=== PATIENT | female | born 1945 | race Caucasian/White ===

== ENCOUNTER → 2017-01-26 | Outpatient (CLI) | payer MEDICARE, OTHER ==
--- NOTE | 2017-01-27 19:42 | HKNOTE ---
DATE OF SERVICE: 01/26/2017 SUBJECTIVE: The patient continues to have severe pain in her left knee. She states that she is now ready to consider proceeding with knee replacement surgery. PHYSICAL EXAMINATION: LEFT KNEE: The left knee shows normal alignment. Active and passive extension is 0 degrees. Activ e and passive flexion is 120 degrees. Pain on putting the knee through forced flexion. The medial and lateral collateral ligaments and cruciate ligaments are intact. Sixto test is negative. Ther e is no effusion, scarring, or cysts. A 6+ crepitus in the knee, none in the patella. Tender over the medial joint line. The patella tracks normally. There is no tenderness on the articular surfac e of the patella or in the patellar groove. The Q angle is normal. IMAGING: Her most recent left knee x-rays were reviewed. These show [id number] changes in the pa tellofemoral compartment and the medial joint. PAST MEDICAL HISTORY: Hypertension. PAST SURGICAL HISTORY: 1. Hysterectomy. 2. Lap band placement. 3. [facility] 4. Right big toe implant. 5. Right wrist surgery by Dr. Davidson. 6. Carpal tunnel surgery by Dr. Davidson. 7. Carpal tunnel surgery left hand, Dr. Davidson. MEDICATIONS: 1. Crestor 20 mg daily. 2. Losartan 50/12.5 mg every other day. 3. Levoxyl 50 mg every other day. 4. Omeprazole 40 mg b.i.d. DIAGNOSES: 1. Severe degenerative osteoarthritis of the left knee. 2. Hypercholesterolemia. 3. Hypertension. MANAGEMENT: The patient's surgery will be scheduled to be performed in the near future. Dictated By: CAROLINA MCFARLAND/FELICIA Conf#: [id number] DID#: [id number]
== END | disposition home or self-care (01) ==
LOC: HKI 13:23
DX: M17.12 Unilateral primary osteoarthritis, left knee (principal); E78.00 Pure hypercholesterolemia, unspecified; I10 Essential (primary) hypertension
CPT/HCPCS: G0463

== ENCOUNTER → 2017-02-10 | Outpatient (CLI) | payer MEDICARE, OTHER ==
[~2017-02-10] MED LIST: LEVO50TA74 PO; LEVO75TA5 PO; LOSA1TAB19 PO; LOSA50TA6 PO; OMEP40CA6 PO; ROSU20TA PO
--- NOTE | 2017-02-11 03:53 | HKNOTE ---
DATE OF SERVICE: 02/10/2017 The patient comes in for preoperative evaluation. She is scheduled to have a left total hip replace ment on 02/11/2017. She has been cleared for surgery by Dr. Christian Reyes. Numerous questions were asked and answered. She read my booklet on knee replacement surgery. The patient is in good h ealth at this time. She continues to have significant symptoms in her knee. She is anxious to proc eed with the surgery. She was given prescriptions for postoperative pain management. Dictated By: CAROLINA MCFARLAND/FELICIA Conf#: [id number] DID#: [id number]
== END | disposition home or self-care (01) ==
LOC: HKI 13:30
DX: M25.552 Pain in left hip (principal); M16.12 Unilateral primary osteoarthritis, left hip
CPT/HCPCS: G0463

== ENCOUNTER 2017-02-11 06:08 | Inpatient (IN) | payer MEDICARE, OTHER ==
[2017-02-10 10:13] VITALS: BMI 27.6
[2017-02-11] VITALS (30 sets, daily range): BP systolic 113–148; BP diastolic 64–78; PULSE 69–90; RESP 9–20; Ht 149.9 cm; Wt 63.4 kg
[~2017-02-11] VITALS: Ht 149.9 cm; Wt 63.4 kg
[~2017-02-11 06:08] MED LIST changes: +KNEE PAIN COCKTAIL VANCO INJ SCH; -LEVO50TA74 PO; -LEVO75TA5 PO; -LOSA1TAB19 PO; -LOSA50TA6 PO; -OMEP40CA6 PO; -ROSU20TA PO; +SOD CHLORIDE 0.9% IVPB ONE; +TRANEXAMIC ACID IVPB ONE
[2017-02-11] MEDS ORDERED: ONDANSETRON 4 MG INJ IV ONE (06:12)
[2017-02-11] MEDS ORDERED: DEXAMETHASONE 4 MG/ML 1 ML INJ IV ONE (06:12)
[2017-02-11] MEDS ORDERED: CELECOXIB 200 MG CAP PO ONE (06:12)
[2017-02-11] MEDS ORDERED: VANCOMYCIN 1 GM (PMX) 250 ML IVPB ONE (06:12)
[2017-02-11] MEDS ORDERED: ACETAMINOPHEN 1000MG/100ML IV 100 ML IVPB ONE (06:12)
[2017-02-11] MEDS ORDERED: LACTATED RINGER'S 1,000 ML IV* SCH (06:12)
[2017-02-11] MEDS ORDERED: oxyCODONE (CR) 10 MG TAB [oxyCONTIN] PO ONE (06:12)
[2017-02-11] MEDS ORDERED: LANSOPRAZOLE 30 MG CAP PO ONE (06:12)
[2017-02-11] MEDS ORDERED: LEVO75TA5 PO (06:25)
[2017-02-11] MEDS ORDERED: LOSA50TA6 PO (06:25)
[2017-02-11] MEDS ORDERED: LEVO50TA74 PO (06:25)
[2017-02-11] MEDS ORDERED: LOSA1TAB19 PO (06:25)
[2017-02-11] MEDS ORDERED: OMEP40CA6 PO (06:25)
[2017-02-11] MEDS ORDERED: ROSU20TA PO (06:25)
--- NOTE | 2017-02-11 06:50 | HPN ---
Date/Time of Note Date/Time of Note DATE: 02/11/17 TIME: 06:50 Interval H&P Admission Note Pt. seen H&P reviewed: No system changes LE ALONSO PA-C Feb 11, 2017 06:50
[2017-02-11] MEDS ORDERED: MIDAZOLAM 1 MG/ML 2 ML INJ ONE (07:35)
[2017-02-11] MEDS ORDERED: METHYLENE BLUE 1% 10 ML INJ ONE (07:53)
[2017-02-11] MEDS ORDERED: BUPIVACAINE 0.25%/EPI (SDV) 30 ML INJ ONE (07:53)
[2017-02-11] MEDS ORDERED: POLYMYXIN B 500000 UNIT INJ ONE (07:54)
[2017-02-11] MEDS ORDERED: TOBRAMYCIN 1.2 GM POWDER ONE (07:54)
[2017-02-11] MEDS ORDERED: VANCOMYCIN 1 GM INJ ONE (07:54)
[2017-02-11] MEDS ORDERED: SOD CHLORIDE 0.9% IRR SCH ×2 (08:00)
[2017-02-11] MEDS ORDERED: TRANEXAMIC ACID IRR SCH ×2 (08:00)
[2017-02-11] MEDS ORDERED: FENTAnyl 50 MCG/ML VIAL ONE (08:05)
[2017-02-11] MEDS ORDERED: ROPIVACAINE 0.2% 100 ML ONE (08:06)
[2017-02-11] MEDS ORDERED: BUPIVACAINE 0.25% (MPF) 30 ML INJ ONE (08:52)
[2017-02-11] MEDS ORDERED: BACITRACIN 50000 UNITS INJ IRR ONE (09:11)
[2017-02-11] MEDS ORDERED: ROPIVACAINE 0.2% 100ML BAG INJ ONE (09:13)
[2017-02-11] MEDS ORDERED: LABETALOL HCL 20MG INJ IV PRN (10:00)
[2017-02-11] MEDS ORDERED: DIPHENHYDRAMINE 50 MG INJ IV PRN (10:00)
[2017-02-11] MEDS ORDERED: MEPERIDINE 25 MG INJ IV PRN (10:00)
[2017-02-11] MEDS ORDERED: hydrALAzine 20 MG INJ IV PRN (10:00)
[2017-02-11] MEDS ORDERED: HYDROmorphONE (0.2 MG/ML) 10ML SYG IV PRN ×2 (10:00)
[2017-02-11] MEDS ORDERED: ONDANSETRON 4 MG INJ IV PRN (10:00)
[2017-02-11] MEDS ORDERED: FENTAnyl 50 MCG/ML VIAL IV PRN (10:00)
[2017-02-11] MEDS ORDERED: METOCLOPRAMIDE 10 MG INJ IV PRN (10:00)
--- NOTE | 2017-02-11 10:12 | RADRPT ---
PROCEDURE: Intraoperative imaging of the left knee with fluoroscopy. CLINICAL INDICATION: Left knee pain. Intraoperative. TECHNIQUE: 2 images of the left knee were obtained in the operating room with an image intensifier . No radiologist was in attendance. 2.1 seconds of fluoroscopy time was used. COMPARISON: Left knee radiographs dated 10/05/2016. FINDINGS: Images demonstrate components of a total left knee arthroplasty. IMPRESSION: 1. Intraoperative imaging of the left knee. RPTAT: QQ .Jam Bee MD, Date Time Electronically viewed and signed by .Jam Bee MD, on 02/11/2017 10:12 .R/
[2017-02-11] MEDS ORDERED: ONDANSETRON 4 MG INJ ONE (11:17)
[2017-02-11] MEDS ORDERED: ETOMIDATE 20 MG INJ ONE (11:17)
[2017-02-11] MEDS ORDERED: ROCURONIUM 50 MG INJ ONE (11:17)
[2017-02-11] MEDS ORDERED: METOCLOPRAMIDE 10 MG INJ ONE (11:17)
[2017-02-11] MEDS ORDERED: DEXAMETHASONE 4 MG/ML 1 ML INJ ONE (11:17)
[2017-02-11] MEDS ORDERED: LIDOCAINE 2% (SDV) 5 ML INJ ONE (11:17)
[2017-02-11] MEDS ORDERED: NALOXONE (0.4 MG/ML) INJ IV PRN (12:00)
[2017-02-11] MEDS ORDERED: MAGNESIUM HYDROXIDE 30ML CUP PO PRN (12:00)
[2017-02-11] MEDS ORDERED: MEPERIDINE 10 MG/ML 30 ML PCA IV PRN (12:00)
[2017-02-11] MEDS ORDERED: NA PHOSPHATE/BIPHOS 133 ML ENEMA PR PRN (12:00)
[2017-02-11] MEDS: ONDANSETRON 4 MG INJ IV SCH ×3 (12:00→23:47)
[2017-02-11] MEDS ORDERED: DOCUSATE SODIUM 100 MG CAP PO ONE (12:00)
[2017-02-11] MEDS ORDERED: DIPHENHYDRAMINE 50 MG INJ IM PRN (12:00)
[2017-02-11] MEDS ORDERED: ASPIRIN (EC) 325 MG TAB PO ONE (12:00)
[2017-02-11] MEDS ORDERED: BISACODYL 10 MG SUPP PR PRN (12:00)
[2017-02-11] MEDS ORDERED: SENNA/DOCUSATE NA (8.6MG/50MG) TAB PO PRN (12:00)
[2017-02-11] MEDS ORDERED: COUMADIN NOTE XX SCH (12:00)
[2017-02-11] MEDS: ACETAMINOPHEN 1000MG/100ML IV 100 ML IVPB SCH ×2 (12:00→20:34)
[2017-02-11] MEDS ORDERED: ZOLPIDEM 5 MG TAB PO PRN (12:00)
[2017-02-11] MEDS ORDERED: HYDROmorphONE 0.2 MG/ML PCA IV PRN (12:00)
[2017-02-11] MEDS ORDERED: BETHANECHOL 25 MG TAB PO PRN (12:00)
[2017-02-11] MEDS: CEFAZOLIN 1 GM/50 ML (PMX) 50 ML IVPB SCH ×2 (12:25→20:56)
--- NOTE | 2017-02-11 13:15 | CONS ---
Date/Time of Note Date/Time of Note DATE: 02/11/17 TIME: 13:12 Assessment/Plan Assessment/Plan Additional Assessment/Plan Osteoarthritis status post left knee surgery Hypertension Dyslipidemia -Patient status post surgery this morning. Blood pressure slowly increasing. Patient was on losartan and hydrochlorothiazide at home. Would restart losartan with holding parameters. Restart statin therapy. Consultation Date/Type/Reason Admit Date/Time Feb 11, 2017 at 06:08 Type of Consultation: cv Reason for Consultation Postop cardiology management Hx of Present Illness This is a 71-year-old female with past medical history of osteoarthritis, hypertension, dyslipidemia who was seen in our office preoperatively for elective knee surgery. Patient underwent knee surgery this morning. She is being evaluated postoperatively in recovery. She denies any chest pain, shortness of breath, dizziness or lightheadedness. Denies any pain. She does feel tired. Otherwise, she has no complaints. 12 point review of systems was performed with all pertinent positives and negatives mentioned above and all else is negative Past Medical History Osteoarthritis Medical History: high cholesterol, hypertension Family History Significant Family History: no pertinent family hx Social History Smoking Status: Former smoker Other Social History Lives at home Exam/Review of Systems Vital Signs Vitals Vital Signs Date Time Temp Pulse Resp B/P Pulse Ox O2 Delivery O2 Flow Rate FiO2 02/11/17 12:37 80 18 143/78 99 Nasal Cannula 2.0 02/11/17 12:01 98.0 Exam No apparent distress, following commands, being seen in recovery Constitutional: alert, oriented Head: normocephalic Respiratory: other (Coarse breath sounds bilaterally, no wheezing) Cardiovascular: other (S1-S2 heard), regular rate and rhythm Gastrointestinal: bowel sounds, non-tender, other (No guarding), soft Extremities: other (Trace edema, left knee wrapped) Medications Medications Current Medications Lactated Ringer's 1,000 ml @ 125 mls/hr Q8H IV* Last administered on 02/11/17t 06:48; Admin Dose 125 MLS/HR; Start 02/11/17 at 06:12; Stop 02/11/17 at 14:11 Dextrose/Lactated Ringer's (D5-Lr) 1,000 ml @ 80 mls/hr [id number] IV ; Start 02/11 at 12:00; Stop 02/12/17 at 09:00 Hydromorphone HCl (Dilaudid CEMENTER OIL WELL) Q4PCA PRN IV SEVERE PAIN 8-10; Start 02/11/17 at 12:00; Stop 02/12/17 at 09:00 Meperidine HCl (Demerol CEMENTER OIL WELL) Q4PCA PRN IV SEVERE PAIN 8-10; Start 02/11/17 at 12:00; Stop 02/12/17 at 09:00 Oxycodone HCl (Roxicodone) 20 mg Q3H PRN PO PAIN LEVEL 8-10; Start 02/12/17 at 09:00 Oxycodone HCl (Roxicodone) 10 mg Q3H PRN PO PAIN LEVEL 4-7; Start 02/12/17 at 09 :00 Oxycodone HCl 5 mg 5 mg Q3H PRN PO PAIN LEVEL 1-3; Start 02/12/17 at 09:00 Acetaminophen (Ofirmev 1000mg/ 100ml Iv) 100 ml @ 400 mls/hr Q8H IVPB ; Start 02/11/17 at 12:00; Stop 02/13/17 at 04:14 Zolpidem Tartrate (Ambien) 5 mg HS PRN PO INSOMNIA; Start 02/11/17 at 12:00 Ondansetron HCl 4 mg 4 mg Q6H IV ; Start 02/11/17 at 12:00; Stop 02/12/17 at 06:01 Cefazolin Sodium (Ancef 1 Gm/50 ml (Pmx)) 50 ml @ 100 mls/hr Q8H IVPB Last administered on 02/11/17t 12:25; Admin Dose 100 MLS/HR; Start 02/11/17 at 12:00; Stop 02/12/17 at 04:29 Miscellaneous Information (Note) NOTE XX ; Start 02/11/17 at 12:00 Aspirin (Ecotrin) 325 mg BID PO ; Start 02/12/17 at 09:00 Celecoxib (Celebrex) 200 mg BID PO ; Start 02/12/17 at 09:00 Dexamethasone (Decadron) 4 mg DAILY@07 IV ; Start 02/12/17 at 07:00; Stop at 06:59 Pantoprazole (Protonix Tab) 40 mg DAILY@06 PO ; Start 02/12/17 at 06:00 Docusate Sodium/ Ferrous Fumarate (Marleni-Sequels) 1 tab BID PO ; Start 02/12/17 at 09:00 Docusate Sodium (Colace) 200 mg BID PO ; Start 02/12/17 at 09:00; Stop 02/15/17 at 08:59 Simethicone (Mylicon) 80 mg TID PRN PO DISTENSION/GAS/BLOATING; Start 02/11/17 at 12:00 Senna/Docusate Sodium (Senokot-S) 2 tab BID PRN PO CONSTIPATION; Start 02/11/17 at 12:00 Magnesium Hydroxide (Milk Of Mag) 30 ml HS PRN PO CONSTIPATION; Start 02/11/17 at 12:00 Bisacodyl (Dulcolax Supp) 10 mg DAILY PRN FL CONSTIPATION; Start 02/11/17 at 12: 00 Sodium Biphosphate/ Sodium Phosphate (Fleet Enema) 133 ml DAILY PRN FL CONSTIPATION; Start 02/11/17 at 12:00 Diphenhydramine HCl (Benadryl) 25 mg Q4H PRN IM ITCHING OR RASH; Start 02/11/17 at 12:00 Ketorolac Tromethamine (Toradol) 15 mg DAILY@06 PRN INJ ADMINSTER BY SURGEON ONLY; Start 02/12/17 at 06:00; Stop 02/14/17 at 23:59 Bupivacaine HCl/ Epinephrine Bitart (Marcaine 0.25%/ Epi (Sdv) 30 ml) 20 ml DAILY@06 PRN INJ ADMINSTER BY SURGEON ONLY; Start 02/12/17 at 06:00; Stop at 23:59 Naloxone HCl (Narcan) 0.2 mg Q2M PRN IV DECREASED REPIRATORY RATE; Start at 12:00 Severino Maher DO Feb 11, 2017 13:15
--- NOTE | 2017-02-11 13:22 | OPR ---
DATE OF OPERATION: 02/11/2017 SURGEON: Herbert. Adam MD CANAL STRUCTURE OPERATOR: FRANCISCO JAVIER Wade ANESTHESIOLOGIST: ___ PREOPERATIVE DIAGNOSIS: Exceedingly severe degenerative osteoarthritis of the left knee. POSTOPERATIVE DIAGNOSIS: Exceedingly severe degenerative osteoarthritis of the left knee. OPERATION PERFORMED: Total knee replacement (arthroplasty of the knee, condylar plateau medial and lateral compartments with patella resurfacing, CPT 96441). FINDINGS AT SURGERY: The patient was found to have exceedingly severe degenerative osteoarthritis o f the patellofemoral joint. The medial tibial plateau showed severe degenerative changes. The med ial femoral condyle showed erosion of about 50% of the articular cartilage over the weightbearing villareal rface. The remaining cartilage is of very poor quality. There are very large osteophytes around th e entire periphery of the distal femur, and the intercondylar notch is almost overgrown with osteoph ytes. The patient's bone quality was excellent for a person of her age. JUSTIFICATION FOR SURGERY: The knee was found to have end-stage osteoarthritis. The patient is a v karina active 71-year-old whose lifestyle is markedly affected by the arthritic knee. An extensive cou rse of conservative care has been tried prior to embarking on the knee replacement operation. There can be no reasonable expectation that any further conservative treatment will make any improvement to this patient's pain level and lifestyle. The risks and complications of the surgery were discuss ed with the patient at the preoperative visit as well as the risks and possible complications of blo od transfusion using hospital blood. The patient is agreeable to using hospital blood if needed. DESCRIPTION OF PROCEDURE: The patient was given intravenous antibiotics 1 hour prior to surgery. A n epidural anesthetic was initiated in the ICU holding area. The patient was taken to the operating room and given a light general anesthetic. The leg, foot, and ankle were prepared and draped in th e usual sterile fashion. The center of the ankle was marked at the midpoint between the 2 malleoli with a sterile marking pen. A tourniquet around the thigh was inflated to 225 mmHg after the leg leung d been exsanguinated using an Esmarch bandage. The tourniquet was inflated at the initiation of pro cedure for a short period and was then again reinflated at the time of cementing the components part s. The total tourniquet time was 56 minutes. A longitudinal incision was made over the anterior aspect of the knee. The incision extended from t he tibial tubercle to a point just above the patella. The medial capsule was exposed by sharp and b meenakshi dissection, and was incised 1/4 inch medial to the patella. A marking stitch was set on each s princess of the incision at the midpoint of the capsule so as to enable accurate reapproximation at the e nd of the operation. A vastus split was made in the vastus medialis extending from the superior karina e of the patella for approximately 5 cm between the line with the muscle fibers. The ends of the mu scle split at the patella were marked with a marking stitch on each side for later accurate reapprox imation. The patella was reflected laterally and osteophytes around the rim of the patella were rem eyad. Osteophytes along the lateral femoral condyle were removed so as to facilitate lateral reflec tion of the patella. Posteromedial osteophytes were removed on the lateral side as well, so as to f ree up the lateral collateral ligament. Medial femoral osteophytes and posteromedial femoral osteop hytes were also removed at this time. This allowed for the knee to be brought into a more normal al ignment. A segment of bone was cut from the articular surface of the patella using a caliper to det ermine the exact thickness to be removed. Note that the patella was extremely small and thin. Prior to making the patellar cut, the thickness of the patella was 17 mm. A standard jig for making the p atellar cut was not used for fear of cutting too much off the patella, especially since the medial a nd lateral femoral condyles were hypoplastic at surgery. The knee was flexed, and the patella was di splaced laterally without eversion. Osteophytes in the femoral notch were removed. The remnants of the medial and lateral menisci were excised and the cruciate ligaments were excised. The medial co llateral ligament was elevated as an osteo-periosteal flap from the proximal tibia. The distal end of the medial collateral ligament remained attached to the tibia throughout the operation. The tibi a was retracted forward with Hohmann retractor, inserted posterior to the midpoint of the proximal t ibia. The tibial jig was set in place in such a way as to align longitudinally with the anterior ti bial spine, with the junction of the middle and medial 2/3 of the patella tendon, and with the poste rior intercondylar eminence of the tibia. An AP and lateral x-ray was obtained with the alignment j ig in place. This showed that the alignment was satisfactory after some slight adjustments were mad e. The posterior slope of the tibia was set at 6 degrees. The tibial cutting block was attached to the proximal tibia with 2 Steinmann pins. An external alignment nate was placed on the cutting bloc k to confirm the alignment of the cutting block. An Karel Wing feeler gauge was now placed on the s uperior aspect of the cutting block to further confirm the posterior slope of the tibia and the dept h of the cut to be made. An oscillating saw was used to remove an appropriate amount of bone from t he proximal tibia with the healthy side being used to measure the cutting depth. The lateral femora l condyle of the distal femur was measured to determine the appropriate size for the femoral compone nt. The anterior condyle of the femur was partially removed with a rongeur. A medium-sized cutting block was attached to the distal femur with 2 Steinmann pins through the pin holes in the block. T he external alignment jig of this cutting block was lined up with the anterior surface of the femur and a central intercondylar hole for the intramedullary nate was drilled through the hole in the alig nment block. The block was removed. A long Waterpik nozzle was used to flush fat from the intramed ullary canal. The appropriately sized cutting block was now attached to the femur by means of an in tramedullary nate. The linking guide was inserted into the slot in the base of the femoral cutting b lock with the knee set at 90 degrees of flexion and with the linking guide set flush with the proxim al tibial cut in order to set the appropriate rotational alignment on the femoral cutting block. Li gament balance was checked at this point and was found to be very satisfactory. Once the rotational alignment had been determined, and the ligaments found to be balanced, the femoral cutting block wa s secured to the distal femur with 2 Steinmann pins. The anterior and posterior cuts of the distal femur were made off the femoral cutting block. The cutting block was removed and a spacer block was used to measure the flexion gap which was found to be 12.5 mm. The same spacer block size without the femoral element was used with the leg in extension to determi ne the amount of distal femur to be removed in the transverse plane. A 5-degree distal cutting bloc k was now set on the femoral intramedullary nate, and the nate was inserted into the intramedullary ca nal. The appropriate amount of bone to be removed was determined. The femoral cutting block was pi nned to the anterior surface of the femur with 2 Steinmann pins. The appropriate amount of bone was resected off the distal femur to give an extension gap equal to the thickness of the flexion gap. The cut needed to be repeated after initial cut in order to produce an extension gap the same size a s the flexion gap. By using the appropriate cutting blocks, the rest of the femoral cuts were made. The femoral trial component was installed and was found to fit perfectly. The femoral trial component was removed. T he proximal tibia was sized, and the appropriate tibial tray selected. The central fixation hole in the tibia was made using the tibial tray template and the appropriate instruments. The femoral and tibial trials and the trial tibial insert were installed, and the patella was prepared to accept th e 32 mm-sized dome component. The trial components were all removed. The tourniquet was inflated. Soft tissues around the knee, especially the posterior capsule, were injected with a mixture of Jac opin, Toradol, morphine, and clonidine. The cut surfaces of the bones were cleaned with pulsatile W ater Jet lavage and thoroughly dried. Sclerotic bone surfaces were drilled with a 1/8-inch drill. The tibial trial component was installed with methyl methacrylate cement followed by the femoral com ponent and finally the patellar component. Cement was used on all 3 components. The cement was fin kinsey packed into the cut surfaces of the bone and pressurized with a rubber dam in order to get good interdigitation of the cement into the bone. A lateral x-ray of the knee was obtained while the keyshawn ent was hardening with the [address], which showed that the knee was in extension and th at a 12.5 mm tibial tray would be required. Once the cement was hard, all extraneous cement was cornell juan carlos. The cut edges of the medial capsule were held together at the midpoint with a towel clip, and the knee was put through a full range of motion. The patella was found to track satisfactorily. A lateral release was not required. At this point, the patella was found to track very well in the pa tellar groove of the femoral component. The knee was frequently irrigated with normal saline containing antibiotics with pulsatile lavage th roughout the entire operation as a prophylactic measure against infection. Once the cement was hard , the tourniquet was released. Bleeding points were cauterized. The total tourniquet time was 56 m inutes. The patient's vital signs remained stable throughout the operation. The permanent rotating bearing was installed. Superficial and deep Hemovac drains were set in place . The wound was closed using interrupted Vicryl on the capsule with FiberWire used at strategic poi nts such as the attachment of the distal ends of the vastus medialis at the split, and the tibial te ndon was also attached to the osteo-periosteal flap with FiberWire. The rest of the medial capsule was closed with interrupted Vicryl. A subcuticular stitch was inserted and aurelia were used on the skin. The usual sterile dressings were applied. A Anthony-Muniz compression dressing was applied a fter a sterile cooling pad had been set in place against the deep tissues by sterile cast padding. The patient's condition at the end of the procedure was satisfactory. Vital signs remained stable t hroughout the operation. The patient returned to the recovery room in stable condition. X-rays wer e obtained in the recovery room. Calf pumps were applied to both legs in the operating room. There were no problems or complications as far as we know. The sponge and instrument counts were correct . COMPONENT INFORMATION: KNEE IMPLANT TYPE: LCS. FEMORAL COMPONENT SIZE: 2 TIBIAL COMPONENT SIZE: 2 PATELLAR COMPONENT SIZE: 32 mm dome TIBIAL INSERT: 12.5 mm ____ IMPLANT MOTOR INSTALLER: The [employer] [place], [place]. TOTAL TOURNIQUET TIME: 54 minutes TOTAL BLOOD LOSS: Less than 150 mL Dictated By: CAROLINA MCFARLAND/FELICIA Conf#: [id number] DID#: [id number]
[2017-02-11] MEDS ORDERED: TRANEXAMIC ACID 630 MG in SOD CHLORIDE 0.9% 100 ML IVPB ONE ×2 (15:00→18:00)
[2017-02-11] MEDS ORDERED: BACITRACIN 50000 UNITS INJ ONE (15:10)
--- NOTE | 2017-02-11 15:27 | RADRPT ---
PROCEDURE: Left knee radiograph. CLINICAL INDICATION: Left knee pain. Intraoperative. TECHNIQUE: Single lateral intraoperative image. COMPARISON: Prior study done earlier the same day. FINDINGS: There are components of a total left knee arthroplasty. Alignment was determined in the operating r oom by the surgeon. IMPRESSION: 1. Satisfactory intraoperative imaging of the left knee. RPTAT: QQ .Jam Bee MD, MD Date Time Electronically viewed and signed by .Jam Bee MD, on 02/11/2017 15:26 .R/
[2017-02-11] MEDS ORDERED: oxyCODONE 5 MG TAB PO PRN ×2 (15:30)
[2017-02-11] MEDS: oxyCODONE 5 MG TAB PO PRN (15:40)
[2017-02-11] MEDS: DEXTROSE 5%-LR 1,000 ML IV SCH (15:45)
--- NOTE | 2017-02-11 16:13 | RADRPT ---
PROCEDURE: XR Left Knee. CLINICAL INDICATION: Left knee pain. Postop. TECHNIQUE: Two views. Frontal and lateral. COMPARISON: Prior study done earlier the same day. FINDINGS: Anterior skin aurelia and surgical drains are noted. There is gas in the soft tissues from the recent surgery. There is a total left knee arthroplasty which appears satisfactory. There is no lytic or blastic lesion. There is no joint effusion. IMPRESSION: 1. Satisfactory postoperative appearance of the left knee. RPTAT: QQ .Jam Bee MD, MD Date Time Electronically viewed and signed by .Jam Bee MD, MD on 02/11/2017 16:13 .R/
--- NOTE | 2017-02-11 17:48 | HP ---
DATE OF ADMISSION: 02/11/2017 CHIEF COMPLAINT: Left knee pain. HISTORY OF PRESENT ILLNESS: The patient is a 71-year-old female with history of severe left knee os teoarthritis, status post failed conservative treatment including local steroid injection. The dax ent continues to have severe pain in the left knee and was scheduled for left total knee replacement . Patient postoperatively denies any chest pain or shortness of breath. The patient is breathing c omfortably and remains awake and alert. The patient does not have any sensory, motor deficit. The p atient did not have any abdominal pain. No recent fever or chills. No recent fall. The patient de nied any cough, sore throat, headache, dizziness, syncope. No history of dysuria or hematuria prior to admission. REVIEW OF SYSTEMS: The rest of review of systems were unremarkable. The patient's postoperative pa in is controlled. PAST MEDICAL HISTORY: The patient's medical history is significant for hypertension and dyslipidemia and hypothyroidism. PAST SURGICAL HISTORY: Status post and subsequently underwent hysterectomy, history of la p band placement, history of bilateral carpal tunnel surgery, history of neuroma removed from hammer toe and right big toe implant. Details not available. SOCIAL HISTORY: No smoking, no alcohol. ALLERGIES: None to medications. FAMILY HISTORY: Noncontributory for patient's medical condition. PHYSICAL EXAMINATION: GENERAL: The patient is conscious, awake, alert. VITAL SIGNS: Blood pressure 148/78, pulse 79, respirations 18, temperature 97.6, O2 saturation 97% on 2 liters. HEENT: Atraumatic, normocephalic. Conjunctivae and lids normal. Oropharynx clear. NECK: Supple. No mass, no thyromegaly, no carotid bruit. CHEST: Fairly clear. No use of accessory muscles. CARDIOVASCULAR: Regular rate and rhythm. S1, S2 normal. No murmur. ABDOMEN: Soft, nondistended, nontender. No palpable mass. No pulsatile mass. EXTREMITIES: No ankle edema. Pedal pulses palpable. SKIN: Without rash or ulcer warm to touch. NEUROLOGIC: The patient is awake, alert with no gross focal deficit. MEDICATIONS PRIOR TO ADMISSION: 1. Losartan. 2. HCTZ. 3. Levothyroxine. 4. Crestor. 5. Omeprazole. 6. Tylenol. LABORATORY DATA: Sodium 139, potassium 4.3, BUN 14, creatinine 0.8, glucose 90. Liver enzymes norm al. LDL 46. TSH 1.3. T4 1. Coagulation profile normal. WBC 6.3, hemoglobin 12.2, platelets 246. EKG revealed normal sinus rhythm with no gross ST changes. Chest x-ray revealed no active disease . IMPRESSION: 1. Severe left knee osteoarthritis, failed conservative treatment, status post left total knee repl acement. 2. Hypertension. 3. Hyperlipidemia. 4. Hypothyroidism. PLAN: Patient admitted on medical floor. Patient will be started on clear liquid diet, which will be advanced as tolerated. The patient will be continued on IV fluid and will be given IV Tylenol, I V Toradol, Roxicodone and IV Dilaudid depending upon the severity of the pain. The patient will be started on aspirin 325 b.i.d. for DVT prophylaxis and will be continued on Lipitor, losartan, hydroc hlorothiazide, omeprazole and Levoxyl. The patient will be seen by Dr. Maher from [facility]. I spoke with the patient's PMD, Dr. Mccoy. Further recommendation depends on hospital course and postoperative recommendation from Dr. Medina. Dictated By: SEB PEHLAN/FELICIA Conf#: [id number] DID#: [id number]
[2017-02-11] MEDS: ATORVASTATIN 20 MG TAB PO SCH (20:34)
[2017-02-11] MEDS: LOSARTAN 25 MG TAB PO SCH (20:36)
[2017-02-12] MEDS: DEXTROSE 5%-LR 1,000 ML IV SCH (00:30)
[2017-02-12] MEDS: oxyCODONE 5 MG TAB PO PRN (02:56)
[2017-02-12 05:29] LABS: ADD SCAN DIFF NO; BASOPHILS % 0.1 % (0.0-2.0); HEMATOCRIT 28.4 % (37.0-47.0); HEMOGLOBIN 9.3 g/dl (12.0-16.0); LYMPHOCYTES % 7.4 % (15.0-51.0); MEAN CORPUSCULAR HEMOGLOBIN 29.5 pg (29.0-33.0); MEAN CORPUSCULAR HGB CONC 32.7 g/dl (32.0-37.0); MEAN CORPUSCULAR VOLUME 90.2 fl (82.0-101.0); MEAN PLATELET VOLUME 11.9 fl (7.4-10.4); MONOCYTE # 1.1 10^3/ul (0.3-0.9); MONOCYTES % 7.6 % (0.0-11.0); NEUTROPHIL # 11.8 10^3/ul (1.6-7.5); NEUTROPHILS % 84.4 % (39.0-77.0); PLATELET COUNT 194 10^3/UL (140-415); RED BLOOD COUNT 3.15 10^6/ul (4.20-5.40); RED CELL DISTRIBUTION WIDTH 13.4 % (11.5-14.5)
[2017-02-12] MEDS: ONDANSETRON 4 MG INJ IV SCH (05:33)
[2017-02-12] MEDS: ACETAMINOPHEN 1000MG/100ML IV 100 ML IVPB SCH ×3 (05:33→20:21)
[2017-02-12] MEDS: CEFAZOLIN 1 GM/50 ML (PMX) 50 ML IVPB SCH (05:33)
[2017-02-12] MEDS: LEVOTHYROXINE 50 MCG TAB PO SCH (05:33)
[2017-02-12] MEDS: PANTOPRAZOLE (EC) 40 MG TAB PO SCH (05:33)
[2017-02-12] MEDS ORDERED: KETOROLAC 15 MG INJ INJ PRN (06:00)
[2017-02-12] MEDS ORDERED: BUPIVACAINE 0.25%/EPI (SDV) 30 ML INJ INJ PRN (06:00)
[2017-02-12] MEDS: DEXAMETHASONE 4 MG/ML 1 ML INJ IV SCH (06:18)
[2017-02-12 07:00] VITALS: BP 110/61; RESP 20
--- NOTE | 2017-02-12 07:32 | PN ---
Date/Time of Note Date/Time of Note DATE: 02/12/17 TIME: 07:25 Assessment/Plan VTE Prophylaxis VTE Prophylaxis Intervention: ambulation, anti-embolic stocking, SCD's, other ( Aspirin 325 mg twice daily) Lines/Catheters IV Catheter Type (from Nrsg): Peripheral IV Garcia in Place (from Nrs): Yes Assessment/Plan Assessment/Plan -Hemovac Removed Today. 200 cc output. -Pain Cocktail Given -Pain Meds as needed -Dress change performed today -OOB with PT -ASA/SCDs for DVT Prophylaxis -Continue monitoring with Internal Medicine -Discussed with patient the increased risk of prolonged insertion of Garcia catheter in regards to urinary tract infection. Patient has agreed to remove Garcia catheter. Order was communicated to the nurse (Cynthia). -White blood cell count at 14 with mild erythema at wound site. Vancomycin will be ordered for infection prophylaxis. -Patient Stable. Plan is to DC home likely on postop day 2 or 3 depending on continued progress. Subjective 24 Hr Interval Summary 71-year-old female postop day 1 status post left total knee arthroplasty. Patient denies any complications overnight. No pain complaints of the knee. Patient refused to remove Garcia catheter yesterday as she would like to avoid using bedpan. Denies any chest pain/tightness, shortness of breath or calf pain. Doing well. Has yet to initiate physical therapy. Constitutional: improved, no complaints Exam/Review of Systems Vital Signs Vitals Vital Signs Date Time Temp Pulse Resp B/P Pulse Ox O2 Delivery O2 Flow Rate FiO2 02/11/17 23:45 97.4 80 18 117/68 98 02/11/17 20:00 Nasal Cannula 2.0 Intake and Output 02/11/17 02/11/17 02/12/17 15:00 23:00 07:00 Intake Total 1712.4 ml 1156.3 ml 1030 ml Output Total 450 ml 650 ml 700 ml Balance 1262.4 ml 506.3 ml 330 ml Exam Free Text/Dictation -Hemovac: Intact with 200 cc output. -Pain Cocktail Drains: Intact -Incision: Clean, Dry and Intact with mild erythema at wound site. No drainage. -5/5 Tibialis Anterior, EHL Gastrocnemius/Soleus and Peroneals -Normal Sensation -Palpable DP/PT, Capillary Refill <2 secs -No Distal Edema -Negative Gio Sign/No calf pain -Toes Freely Movable Constitutional: alert, oriented, well developed Results Result Diagram: 02/12/17 0434 LE ALONSO PA-C Feb 12, 2017 07:32
[2017-02-12] MEDS ORDERED: VANCOMYCIN IV PER PHARMACY XX SCH (08:00)
[2017-02-12] MEDS ORDERED: LOSARTAN 50 MG TAB PO SCH (09:00)
[2017-02-12] MEDS: VANCOMYCIN 1 GM in NS 250 ML IVPB SCH (09:03)
[2017-02-12] MEDS: ASPIRIN (EC) 325 MG TAB PO SCH ×2 (09:04→20:21)
[2017-02-12] MEDS: FERROUS FUMARATE (SR) TAB PO SCH ×2 (09:04→20:21)
[2017-02-12] MEDS: CELECOXIB 200 MG CAP PO SCH ×2 (09:04→20:21)
[2017-02-12] MEDS: LOSARTAN 25 MG TAB PO SCH ×2 (09:04→20:22)
[2017-02-12] MEDS: HYDROCHLOROTHIAZIDE 12.5 MG CAP PO SCH (09:05)
[2017-02-12] MEDS: DOCUSATE SODIUM 100 MG CAP PO SCH ×2 (09:05→20:21)
[2017-02-12 11:25] VITALS: BP 129/67; PULSE 84; RESP 16
[2017-02-12] MEDS ORDERED: ONDANSETRON 4 MG INJ IV PRN (11:30)
--- NOTE | 2017-02-12 13:22 | PN ---
Date/Time of Note Date/Time of Note DATE: 02/12/17 TIME: 13:15 Assessment/Plan VTE Prophylaxis VTE Prophylaxis Intervention: other Lines/Catheters IV Catheter Type (from Nrs): Peripheral IV Urinary Cath still in place: Yes Assessment/Plan Assessment/Plan 1. Severe left knee osteoarthritis, failed conservative treatment, status post left total knee replacement. -per surgery - clear liquid diet, which will be advanced as tolerated. - IV fluid and will be given IV Tylenol, IV Toradol, Roxicodone and IV Dilaudid depending upon the severity of the pain. 2. Hypertension. - losartan, hydrochlorothiazide -per Dr. Maher from cardiac standpoint. 3. Hyperlipidemia. - continued on Lipitor 4. Hypothyroidism. - Levoxyl 5. omeprazole for GI prophylaxis 6. ASA 325 PO BID for DVT prophylaxis Further recommendation depends on hospital course and postoperative recommendation from Dr. Medina. Subjective 24 Hr Interval Summary Eyes: no complaints ENT: no complaints Respiratory: no complaints Cardiovascular: no complaints Gastrointestinal: nausea (getting better after meds) Genitourinary: no complaints Musculoskeletal: bone/joint pain Skin: no complaints Neurologic: no complaints Endocrine: no complaints Lymphatic: no complaints Psychological: no complaints Exam/Review of Systems Vital Signs Vitals Vital Signs Date Time Temp Pulse Resp B/P Pulse Ox O2 Delivery O2 Flow Rate FiO2 02/12/17 11:25 97.2 84 16 129/67 98 Room Air 02/11/17 20:00 2.0 Intake and Output 02/11/17 02/11/17 02/12/17 15:00 23:00 07:00 Intake Total 1712.4 ml 1156.3 ml 1030 ml Output Total 450 ml 650 ml 700 ml Balance 1262.4 ml 506.3 ml 330 ml Exam Constitutional: alert, oriented Psych: nl mood/affect Eyes: EOMI ENMT: nl external ears & nose Neck: non-tender Respiratory: clear to auscultation Cardiovascular: nl pulses Gastrointestinal: non-tender, soft Musculoskeletal: other (Severe left knee osteoarthritis, failed conservative treatment, status post left total knee replacement.) Extremities: normal pulses Neurological: nl mental status, nl speech Results Result Diagram: 02/12/17 0434 Results 24 hrs Laboratory Tests Test 02/12/17 04:34 White Blood Count 14.0 H Red Blood Count 3.15 L Hemoglobin 9.3 L Hematocrit 28.4 L Mean Corpuscular Volume 90.2 Mean Corpuscular Hemoglobin 29.5 Mean Corpuscular Hemoglobin Concent 32.7 Red Cell Distribution Width 13.4 Platelet Count 194 Mean Platelet Volume 11.9 H Neutrophils % 84.4 H Lymphocytes % 7.4 L Monocytes % 7.6 Eosinophils % 0.0 Basophils % 0.1 Nucleated Red Blood Cells % 0.0 Neutrophils # 11.8 H Lymphocytes # 1.0 Monocytes # 1.1 H Eosinophils # 0.0 Basophils # 0.0 Nucleated Red Blood Cells # 0.0 Medications Medications Current Medications Oxycodone HCl (Roxicodone) 20 mg Q3H PRN PO PAIN LEVEL 8-10 Last administered on 02/12/17 02:56; Admin Dose 20 MG; Start 02/11/17 at 15:30 Oxycodone HCl (Roxicodone) 10 mg Q3H PRN PO PAIN LEVEL 4-7 Last administered on 02/12/17 09:06; Admin Dose 10 MG; Start 02/11/17 at 15:30 Oxycodone HCl 5 mg 5 mg Q3H PRN PO PAIN LEVEL 1-3; Start 02/11/17 at 15:30 Acetaminophen (Ofirmev 1000mg/ 100ml Iv) 100 ml @ 400 mls/hr Q8H IVPB Last administered on 02/12/17 11:47; Admin Dose 400 MLS/HR; Start 02/11/17 at 12:00; Stop 02/13/17 at 04:14 Zolpidem Tartrate (Ambien) 5 mg HS PRN PO INSOMNIA; Start 02/11/17 at 12:00 Miscellaneous Information (Note) NOTE XX ; Start 02/11/17 at 12:00 Aspirin (Ecotrin) 325 mg BID PO Last administered on 02/12/17 09:04; Admin Dose 325 MG; Start 02/12/17 at 09:00 Celecoxib (Celebrex) 200 mg BID PO Last administered on 02/12/17 09:04; Admin Dose 200 MG; Start 02/12/17 at 09:00 Dexamethasone (Decadron) 4 mg DAILY@07 IV Last administered on 02/12/17 06:18; Admin Dose 4 MG; Start 02/12/17 at 07:00; Stop 02/15/17 at 06:59 Pantoprazole (Protonix Tab) 40 mg DAILY@06 PO Last administered on 02/12/17 05: 33; Admin Dose 40 MG; Start 02/12/17 at 06:00 Docusate Sodium/ Ferrous Fumarate (Marleni-Sequels) 1 tab BID PO Last administered on 02/12/17 09:04; Admin Dose 1 TAB; Start 02/12/17 at 09:00 Docusate Sodium (Colace) 200 mg BID PO Last administered on 02/12/17 09:05; Admin Dose 200 MG; Start 02/12/17 at 09:00; Stop 02/15/17 at 08:59 Simethicone (Mylicon) 80 mg TID PRN PO DISTENSION/GAS/BLOATING; Start 02/11/17 at 12:00 Senna/Docusate Sodium (Senokot-S) 2 tab BID PRN PO CONSTIPATION Last administered on 02/12/17 09:04; Admin Dose 2 TAB; Start 02/11/17 at 12:00 Magnesium Hydroxide (Milk Of Mag) 30 ml HS PRN PO CONSTIPATION; Start 02/11/17 at 12:00 Bisacodyl (Dulcolax Supp) 10 mg DAILY PRN ME CONSTIPATION; Start 02/11/17 at 12: 00 Sodium Biphosphate/ Sodium Phosphate (Fleet Enema) 133 ml DAILY PRN ME CONSTIPATION; Start 02/11/17 at 12:00 Diphenhydramine HCl (Benadryl) 25 mg Q4H PRN IM ITCHING OR RASH; Start 02/11/17 at 12:00 Ketorolac Tromethamine (Toradol) 15 mg DAILY@06 PRN INJ ADMINSTER BY SURGEON ONLY; Start 02/12/17 at 06:00; Stop 02/14/17 at 23:59 Bupivacaine HCl/ Epinephrine Bitart (Marcaine 0.25%/ Epi (Sdv) 30 ml) 20 ml DAILY@06 PRN INJ ADMINSTER BY SURGEON ONLY; Start 02/12/17 at 06:00; Stop at 23:59 Naloxone HCl (Narcan) 0.2 mg Q2M PRN IV DECREASED REPIRATORY RATE; Start at 12:00 Losartan Potassium (Cozaar) 25 mg BID PO Last administered on 02/12/17 09:04; Admin Dose 25 MG; Start 02/11/17 at 21:00 Atorvastatin Calcium (Lipitor) 20 mg HS PO Last administered on 02/11/17 20:34 ; Admin Dose 20 MG; Start 02/11/17 at 21:00 Levothyroxine Sodium (Synthroid) 50 mcg DAILY@06 PO Last administered on 05:33; Admin Dose 50 MCG; Start 02/12/17 at 06:00 Hydrochlorothiazide 12.5 mg 12.5 mg DAILY PO Last administered on 02/12/17 09: 05; Admin Dose 12.5 MG; Start 02/12/17 at 09:00 Vancomycin HCl (Vancocin) 250 ml @ 125 mls/hr Q24H IVPB Last administered on 09:03; Admin Dose 125 MLS/HR; Start 02/12/17 at 09:00 Ondansetron HCl (Zofran Inj) 4 mg Q6H PRN IV NAUSEA AND/OR VOMITING Last administered on 02/12/17 11:48; Admin Dose 4 MG; Start 02/12/17 at 11:30 INES CALLAWAY Feb 12, 2017 13:22
[2017-02-12 20:09] VITALS: BP 137/60; RESP 20
[2017-02-12] MEDS: ATORVASTATIN 20 MG TAB PO SCH (20:21)
[2017-02-13] MEDS: ACETAMINOPHEN 1000MG/100ML IV 100 ML IVPB SCH (04:27)
[2017-02-13 05:31] LABS: ADD SCAN DIFF NO
[2017-02-13 05:32] LABS: BASOPHILS % 0.4 % (0.0-2.0); EOSINOPHILS # 0.1 10^3/ul (0.0-0.5); EOSINOPHILS % 1.1 % (0.0-7.0); HEMATOCRIT 27.8 % (37.0-47.0); HEMOGLOBIN 9.2 g/dl (12.0-16.0); LYMPHOCYTES # 2.3 10^3/ul (0.8-2.9); MEAN CORPUSCULAR HEMOGLOBIN 29.9 pg (29.0-33.0); MEAN CORPUSCULAR HGB CONC 33.1 g/dl (32.0-37.0); MEAN CORPUSCULAR VOLUME 90.3 fl (82.0-101.0); MEAN PLATELET VOLUME 12.1 fl (7.4-10.4); MONOCYTE # 0.8 10^3/ul (0.3-0.9); NEUTROPHIL # 6.3 10^3/ul (1.6-7.5); NEUTROPHILS % 66.1 % (39.0-77.0); PLATELET COUNT 182 10^3/UL (140-415); RED BLOOD COUNT 3.08 10^6/ul (4.20-5.40); RED CELL DISTRIBUTION WIDTH 13.9 % (11.5-14.5); WHITE BLOOD COUNT 9.6 10^3/ul (4.8-10.8)
[2017-02-13 05:59] LABS: POTASSIUM 3.6 mmol/L (3.5-5.1)
[2017-02-13] MEDS: PANTOPRAZOLE (EC) 40 MG TAB PO SCH (06:00)
[2017-02-13] MEDS: LEVOTHYROXINE 50 MCG TAB PO SCH (06:00)
[2017-02-13] MEDS: DEXAMETHASONE 4 MG/ML 1 ML INJ IV SCH (06:01)
[2017-02-13 06:02] LABS: CREATININE 0.78 mg/dl (0.44-1.00)
[2017-02-13 06:03] LABS: CALCIUM 8.6 mg/dl (8.4-10.2)
--- NOTE | 2017-02-13 07:39 | PN ---
Date/Time of Note Date/Time of Note DATE: 02/13/17 TIME: 07:36 Assessment/Plan VTE Prophylaxis VTE Prophylaxis Intervention: ambulation, anti-embolic stocking, SCD's, other ( Aspirin 325 mg twice daily) Lines/Catheters IV Catheter Type (from Nrsg): Peripheral IV Garcia in Place (from Nrsg): Yes Assessment/Plan Assessment/Plan -Pain Cocktail Given. Pain cocktail drains removed. Dermabond applied to pain cocktail drain site. -Pain Meds as needed -Dress change performed today -ASA for DVT Prophylaxis x 6 weeks outpatient discussed. -Continue monitoring as outpatient on discharge -Follow-up at scheduled postop outpatient appointment or sooner if there is any issue. -Tegaderm dressings given with specific instructions to use as outpatient to keep wound dry until aurelia are moved around 10 days. -Patient Stable -Discharge Home with home health. Subjective 24 Hr Interval Summary 71-year-old female postop day 2 status post left total knee arthroplasty. Denies any pain complaints. Patient is up and walking throughout the hallways with front wheeled walker. Patient states that she was able to climb and descend 1 flight of stairs twice yesterday. Denies any calf pain. Denies any chest pain/tightness, shortness of breath or difficulty breathing. Patient has no complaints at this time and would like to go home if possible. Constitutional: no complaints Pain Control: well controlled Exam/Review of Systems Vital Signs Vitals Vital Signs Date Time Temp Pulse Resp B/P Pulse Ox O2 Delivery O2 Flow Rate FiO2 02/12/17 20:09 98.5 93 20 137/60 97 02/12/17 11:25 Room Air 02/11/17 20:00 2.0 Intake and Output 02/12/17 02/12/17 02/13/17 15:00 23:00 07:00 Intake Total 330 ml 1040 ml 800 ml Output Total 300 ml 800 ml Balance 330 ml 740 ml 0 ml Exam Free Text/Dictation -Hemovac: Removed -Pain Cocktail Drains: Intact -Incision: Clean, Dry and Intact without any redness or drainage -5/5 Tibialis Anterior, EHL Gastrocnemius/Soleus and Peroneals -5 lag from full extension. Patient able to actively flex up to 100. -Normal Sensation -Palpable DP/PT, Capillary Refill <2 secs -No Distal Edema -Negative Gio Sign/No calf pain -Toes Freely Movable Constitutional: alert, oriented, well developed Results Result Diagram: 02/13/17 0440 02/13/17 0440 LE ALONSO PA-C Feb 13, 2017 07:39
--- NOTE | 2017-02-13 07:42 | DS ---
Date/Time of Note Date/Time of Note DATE: 02/13/17 TIME: 07:39 Discharge Summary Admission/Discharge Info Admit Date/Time Feb 11, 2017 at 06:08 Discharge Date/Time 02/13/2017 Final Diagnosis Status post left total knee arthroplasty. Patient Condition: Stable Hospital Course On the day of admission, the patient underwent left total knee arthroplasty Intraoperative complications: None Postoperative complications: None The patient was given prophylactic antibiotics and anticoagulants. On the day of surgery and first postoperative day patient was started on gait training and was taught usual restrictions following knee replacement Suction drain removed on the first postoperative day and the dressings were changed. The wound was found to be clean and healing well. There was no sign of infection. Pain cocktail given. On the second postoperative day, patient continued with inpatient PT. Dressings were changed. Wound was found to be clean and healing well. No signs of infection. Pain cocktail given. On the day of discharge, the wound was clean and healing well; there was no sign of infection. The dressings were changed. Discharge Temperature: 97.6 Discharge White Blood Cell Count: 9.6 Discharge Hemoglobin: 9.2 The patient was discharged home with home healthy. Arrangements were made for visiting nurses and home health/physical therapy. Tegaderm with pad also provided for patient. Instructions given on how to use to keep wound dry while showering. Patient may discontinue use of Tegaderm with pad after aurelia have been removed around 10 days postoperatively. The patient will be seen in office at scheduled postoperative evaluation date given on their preoperative exam (03/03/2017 at 2:15 PM). Should patient complain of any problems prior to scheduled postoperative evaluation date, they may call into outpatient clinic to determine if they need to be scheduled at sooner appointment to be seen immediately if needed. Discharge medications: As per medication reconciliation form Diet: Same as preadmission diet. This is Le Villar PA-C dictating discharge summary for Dr. Raphael Medina. Home Meds Reported Medications Omeprazole* (Omeprazole*) 40 Mg Capsule., 40 MG PO DAILY, #30 CAP 02/11/17 Rosuvastatin Calcium* (Crestor*) 20 Mg Tablet, 20 MG PO QHS, #30 TAB 02/11/17 Levothyroxine Sodium* (Levothyroxine Sodium*) 50 Mcg Tablet, 50 MCG PO EVERY OTHER DAY, #30 TAB 02/11/17 Levothyroxine Sodium* (Levothyroxine Sodium*) 75 Mcg Tablet, 75 MCG PO EVERY OTHER DAY, #30 TAB 02/11/17 Losartan Potassium* (Losartan Potassium*) 50 Mg Tablet, 50 MG PO DAILYEVERY OTHER DAY, TAB 02/11/17 Losartan-Hydrochlorothiazide (Losartan-HCTZ) 50-12.5 Mg Tab, 1 TAB PO EVERY OTHER DAY, TAB 02/11/17 Follow-up Plan 03/03/2017 at 2:15 PM. Pending Labs Laboratory Tests Test 02/13/17 04:40 White Blood Count 9.610^3/ul (4.8-10.8) Red Blood Count 3.0810^6/ul (4.20-5.40) Hemoglobin 9.2g/dl (12.0-16.0) Hematocrit 27.8% (37.0-47.0) Mean Corpuscular Volume 90.3fl (82.0-101.0) Mean Corpuscular Hemoglobin 29.9pg (29.0-33.0) Mean Corpuscular Hemoglobin Concent 33.1g/dl (32.0-37.0) Red Cell Distribution Width 13.9% (11.5-14.5) Platelet Count 19753^3/UL (140-415) Mean Platelet Volume 12.1fl (7.4-10.4) Neutrophils % 66.1% (39.0-77.0) Lymphocytes % 24.0% (15.0-51.0) Monocytes % 8.0% (0.0-11.0) Eosinophils % 1.1% (0.0-7.0) Basophils % 0.4% (0.0-2.0) Nucleated Red Blood Cells % 0.0/100WBC (0.0-0.0) Neutrophils # 6.310^3/ul (1.6-7.5) Lymphocytes # 2.310^3/ul (0.8-2.9) Monocytes # 0.810^3/ul (0.3-0.9) Eosinophils # 0.110^3/ul (0.0-0.5) Basophils # 0.010^3/ul (0.0-0.1) Nucleated Red Blood Cells # 0.010^3/ul (0.0-0.0) Sodium Level 139mmol/L (135-144) Potassium Level 3.6mmol/L (3.5-5.1) Chloride Level 107mmol/L (97-110) Carbon Dioxide Level 25mmol/L (21-31) Anion Gap 11 (8-16) Blood Urea Nitrogen 12mg/dl (7-20) Creatinine 0.78mg/dl (0.44-1.00) Glucose Level 97mg/dl (70-220) Calcium Level 8.6mg/dl (8.4-10.2) LE ALONSO PA-C Feb 13, 2017 07:42
--- NOTE | 2017-02-13 07:44 | PDOCDIS ---
Discharge Instructions DIAGNOSIS Discharge Diagnosis: Status post left total knee arthroplasty. CONDITION Patient Condition: Stable HOME CARE INSTRUCTIONS: Diet Instructions: Regular ACTIVITY: Activity Restrictions: Slowly Increase Activity Rest between Activity Avoid heavy lifting No Sexual Activity Do not Drive Do not operate Machinery Avoid Heavy Housework Weight Bearing (As tolerated and with front wheeled walker. May gradually transition to independent ambulation when comfortable and confident.) Bathing Restrictions: Shower (Using Tegaderm with pad applied prior to shower. After shower patient may remove Tegaderm with pad. Perform this every day until aurelia are removed around 10 days postop.) FOLLOW UP/APPOINTMENTS Appointments 03/03/2017 at 2:15 PM in outpatient clinic. LE ALONSO PA-C Feb 13, 2017 07:44
[2017-02-13 09:00] VITALS: BP 130/72; RESP 17
[2017-02-13] MEDS: VANCOMYCIN 1 GM in NS 250 ML IVPB SCH (09:18)
[2017-02-13] MEDS: ASPIRIN (EC) 325 MG TAB PO SCH (09:20)
[2017-02-13] MEDS: FERROUS FUMARATE (SR) TAB PO SCH (09:20)
[2017-02-13] MEDS: DOCUSATE SODIUM 100 MG CAP PO SCH (09:20)
[2017-02-13] MEDS: LOSARTAN 25 MG TAB PO SCH (09:20)
[2017-02-13] MEDS: HYDROCHLOROTHIAZIDE 12.5 MG CAP PO SCH (09:20)
[2017-02-13] MEDS: CELECOXIB 200 MG CAP PO SCH (09:20)
--- NOTE | 2017-02-13 13:34 | DS ---
Date/Time of Note Date/Time of Note DATE: 02/13/17 TIME: 13:34 Discharge Summary Admission/Discharge Info Admit Date/Time Feb 11, 2017 at 06:08 Discharge Date/Time Patient Condition: Stable Hospital Course On the day of admission, the patient underwent left total knee arthroplasty Intraoperative complications: None Postoperative complications: None The patient was given prophylactic antibiotics and anticoagulants. On the day of surgery and first postoperative day patient was started on gait training and was taught usual restrictions following knee replacement Suction drain removed on the first postoperative day and the dressings were changed. The wound was found to be clean and healing well. There was no sign of infection. Pain cocktail given. On the second postoperative day, patient continued with inpatient PT. Dressings were changed. Wound was found to be clean and healing well. No signs of infection. Pain cocktail given. On the day of discharge, the wound was clean and healing well; there was no sign of infection. The dressings were changed. Discharge Temperature: Discharge White Blood Cell Count: 9.6 Discharge Hemoglobin: 9.2 The patient was discharged home with home healthy. Arrangements were made for visiting nurses and home health/physical therapy. Tegaderm with pad also provided for patient. Instructions given on how to use to keep wound dry while showering. Patient may discontinue use of Tegaderm with pad after aurelia have been removed around 10 days postoperatively. The patient will be seen in office at scheduled postoperative evaluation date given on their preoperative exam (03/03/2017 at 2:15 PM). Should patient complain of any problems prior to scheduled postoperative evaluation date, they may call into outpatient clinic to determine if they need to be scheduled at sooner appointment to be seen immediately if needed. Discharge medications: As per medication reconciliation form Diet: Same as preadmission diet. This is Ben Villar PA-C dictating discharge summary for Dr. Raphael Medina. Home Meds Reported Medications Omeprazole* (Omeprazole*) 40 Mg Capsule.dr, 40 MG PO DAILY, #30 CAP 02/11/17 Rosuvastatin Calcium* (Crestor*) 20 Mg Tablet, 20 MG PO QHS, #30 TAB 02/11/17 Levothyroxine Sodium* (Levothyroxine Sodium*) 50 Mcg Tablet, 50 MCG PO EVERY OTHER DAY, #30 TAB 02/11/17 Levothyroxine Sodium* (Levothyroxine Sodium*) 75 Mcg Tablet, 75 MCG PO EVERY OTHER DAY, #30 TAB 02/11/17 Losartan Potassium* (Losartan Potassium*) 50 Mg Tablet, 50 MG PO DAILYEVERY OTHER DAY, TAB 02/11/17 Losartan-Hydrochlorothiazide (Losartan-HCTZ) 50-12.5 Mg Tab, 1 TAB PO EVERY OTHER DAY, TAB 02/11/17 Pending Labs Laboratory Tests Test 02/13/17 04:40 White Blood Count 9.610^3/ul (4.8-10.8) Red Blood Count 3.0810^6/ul (4.20-5.40) Hemoglobin 9.2g/dl (12.0-16.0) Hematocrit 27.8% (37.0-47.0) Mean Corpuscular Volume 90.3fl (82.0-101.0) Mean Corpuscular Hemoglobin 29.9pg (29.0-33.0) Mean Corpuscular Hemoglobin Concent 33.1g/dl (32.0-37.0) Red Cell Distribution Width 13.9% (11.5-14.5) Platelet Count 30450^3/UL (140-415) Mean Platelet Volume 12.1fl (7.4-10.4) Neutrophils % 66.1% (39.0-77.0) Lymphocytes % 24.0% (15.0-51.0) Monocytes % 8.0% (0.0-11.0) Eosinophils % 1.1% (0.0-7.0) Basophils % 0.4% (0.0-2.0) Nucleated Red Blood Cells % 0.0/100WBC (0.0-0.0) Neutrophils # 6.310^3/ul (1.6-7.5) Lymphocytes # 2.310^3/ul (0.8-2.9) Monocytes # 0.810^3/ul (0.3-0.9) Eosinophils # 0.110^3/ul (0.0-0.5) Basophils # 0.010^3/ul (0.0-0.1) Nucleated Red Blood Cells # 0.010^3/ul (0.0-0.0) Sodium Level 139mmol/L (135-144) Potassium Level 3.6mmol/L (3.5-5.1) Chloride Level 107mmol/L (97-110) Carbon Dioxide Level 25mmol/L (21-31) Anion Gap 11 (8-16) Blood Urea Nitrogen 12mg/dl (7-20) Creatinine 0.78mg/dl (0.44-1.00) Glucose Level 97mg/dl (70-220) Calcium Level 8.6mg/dl (8.4-10.2) INES CALLAWAY Feb 13, 2017 13:34
== END 2017-02-13 13:35 | disposition home health service (06) | DRG 470 ==
LOC: REC 06:08 → MS1 13:30
PROVIDERS: ATTEND Internal Medicine
PROC: 0SRD0J9 Replacement of Left Knee Joint with Synthetic Substitute, Cemented, Open Approach (ICD-10-PCS; principal; 2017-02-11 08:00)
DX: M17.12 Unilateral primary osteoarthritis, left knee (principal); I10 Essential (primary) hypertension; E78.5 Hyperlipidemia, unspecified; Z87.891 Personal history of nicotine dependence; E03.9 Hypothyroidism, unspecified
CPT/HCPCS: 73560; 80048; 85025; 86850; 86900; 86901; 86920; 87040; 87086; 88304; 88311; 97110; 97116; 97162; 97530; C1776; J0131; J0690; J0735; J1100; J1885; J2250; J2274; J2405; J2765; J2795; J3010; J3370; J7120; J7121

== ENCOUNTER → 2017-02-24 | Outpatient (CLI) | payer MEDICARE, OTHER ==
[~2017-02-24] MED LIST changes: -KNEE PAIN COCKTAIL VANCO INJ SCH; +LEVO50TA74 PO; +LEVO75TA5 PO; +LOSA1TAB19 PO; +LOSA50TA6 PO; +OMEP40CA6 PO; +ROSU20TA PO; -SOD CHLORIDE 0.9% IVPB ONE; -TRANEXAMIC ACID IVPB ONE
--- NOTE | 2017-02-24 14:45 | PN ---
Date/Time of Note Date/Time of Note DATE: 02/24/17 TIME: 14:42 Outpatient Progress Note Chief Complaint 2 weeks postop left total knee replacement. HPI 71-year-old female presents today for two-week postop visit status post left total knee arthroplasty on 02/11/2017. Denies any pain complaints. Patient states that at times when she does have pain she typically takes a [place] which is usually every 18 hours. Patient has been walking independently since the second postoperative day. Has not used ambulatory device since. Patient is very pleased status post surgery. Denies any chest pain/tightness, shortness of breath or calf pain. Review of Systems Const: No Fever, no chills, no Fatigue, normal appetite, no diaphoresis. Resp: No SOB, no wheezing, no chest pain. CV: No chest pain, no palpitaions, no ESQUIVEL. Physical Exam Blood pressure is 101/61, temperature 98.3, pulse is 84, respiratory rate is 12 , height is 4 feet 11 inches, weight is 135 pounds. General Appearance: well-developed, well-nourished, in no acute distress. Left knee: Evelin intact. Wound looks clean dry and intact with no signs of infection. Patient has full extension. Patient is able to actively flex up to 120 with no pain. Walking independently. Gait is normal. No tenderness to palpation. Normal sensory examination to light touch. Negative Homans sign. Allergies Coded Allergies: No Known Allergy (Unverified , 02/11/17) Assessment/Plan * Staple removal performed today. Steri-Strips applied with instructions. * Prescription for outpatient physical therapy provided today. She may stop in home physical therapy. * Antibiotic card provided today. * Pain medications as needed * Continue DVT prophylaxis * Follow-up at 6 week postop appointment Antibiotic card provided for patient. Patient made aware that dental prophylaxis will be necessary prior to any dental procedure for the remainder of their lifetime. Patient is aware that they must contact their dentist prior to any procedure to inform them of previous joint replacement with prosthesis implant so appropriate antibiotic may be prescribed to lower risk of joint infection status post surgery. Card will also serve as confirmation should patient be traveling and have to go through security such as at an airport. Medications Home Meds Reported Medications Omeprazole* (Omeprazole*) 40 Mg Capsule., 40 MG PO DAILY, #30 CAP 02/11/17 Rosuvastatin Calcium* (Crestor*) 20 Mg Tablet, 20 MG PO QHS, #30 TAB 02/11/17 Levothyroxine Sodium* (Levothyroxine Sodium*) 50 Mcg Tablet, 50 MCG PO EVERY OTHER DAY, #30 TAB 02/11/17 Levothyroxine Sodium* (Levothyroxine Sodium*) 75 Mcg Tablet, 75 MCG PO EVERY OTHER DAY, #30 TAB 02/11/17 Losartan Potassium* (Losartan Potassium*) 50 Mg Tablet, 50 MG PO DAILYEVERY OTHER DAY, TAB 02/11/17 Losartan-Hydrochlorothiazide (Losartan-HCTZ) 50-12.5 Mg Tab, 1 TAB PO EVERY OTHER DAY, TAB 02/11/17 LE ALONSO PA-C Feb 24, 2017 14:45
== END | disposition home or self-care (01) ==
LOC: HKI 13:42
DX: Z09 Encounter for follow-up examination after completed treatment for conditions other than malignant neoplasm (principal); Z96.652 Presence of left artificial knee joint

== ENCOUNTER → 2017-03-24 | Outpatient (CLI) | payer MEDICARE, OTHER ==
--- NOTE | 2017-03-24 14:29 | RADRPT ---
PROCEDURE: XR left knee. CLINICAL INDICATION: Knee pain. TECHNIQUE: AP weightbearing, lateral weightbearing and sunrise views are available for review. COMPARISON: 02/11/2017 FINDINGS: There is a constrained total knee replacement. There is no evidence of loosening of the prosthesis. There is no evidence of hardware failure. The osseous structures are normal in mineralization, archi tecture and alignment No acute fracture or dislocation is seen.No osseous lesions are identified. T he soft tissues are unremarkable . IMPRESSION: Unremarkable constrained total knee replacement. RPTAT: [facility] .Sunil Greene MD, Date Time Electronically viewed and signed by .Sunil Greene MD, on 03/24/2017 14:29 .B/
--- NOTE | 2017-03-24 15:15 | PN ---
Date/Time of Note Date/Time of Note DATE: 03/24/17 TIME: 15:10 Outpatient Progress Note Chief Complaint 6 week postop left total knee replacement HPI 72-year-old female presents today for 6 week postoperative appointment status post left total knee replacement performed on 02/11/2017. In regards to functionality patient is doing well and feels that she return to normal. She is walking okay without assisted ambulatory device. Currently performing outpatient physical therapy which has been going well. She does have concerns however, that she continues with aching to the knee. She does worry that she may be overexerting herself as she has been performing therapies at home frequently as well as outpatient physical therapy. No specific fall or injury. No fever, chills or malaise. No issues with wound healing. Patient states that pain can be an 8/10 on the pain scale. Pain consistency is more of an aching and at times burning sensation primarily to the lateral compartment of the knee. No buckling. No weakness to the knee. Review of Systems Const: No Fever, no chills, no Fatigue, normal appetite, no diaphoresis. Resp: No SOB, no wheezing, no chest pain. CV: No chest pain, no palpitaions, no ESQUIVEL. Physical Exam Blood pressure is 126/67, temperature is 98.2, pulse is 75, respiratory rate is 12, height is 4 feet 11 inches, weight is 130 pounds. General Appearance: well-developed, well-nourished, in no acute distress. Left knee: Well-healed surgical scarring. Patient has full range of motion with 0 extension and flexion up to 125-130 actively. 5/5 strength on resistance with flexion and extension. Normal sensory examination to light touch. Mild to moderate discomfort on palpation to the lateral compartment of the knee. Gait is normal and nonantalgic. Imaging: X-ray of the left knee performed on 03/24/2017 showing all components appearing well aligned, attached and integrated to the bone. No signs of any lucency between metal and bone. Allergies Coded Allergies: No Known Allergy (Unverified , 02/11/17) Assessment/Plan -Patient progressing well but there is concern about ongoing aching style pain that can reach up to an 8/10 on the pain scale. -Lengthy discussion had with patient and patient's regarding preventing overexertion. Patient is very active on a daily basis. She may continue physical therapy until sessions are over. Education materials for at home therapy exercises provided today. Patient made aware, however, should she experience any discomfort with any particular exercise to avoid that exercise. Should pain continue to be severe with no improvement especially with supportive measures such as ice modalities, anti-inflammatories, prescription pain medication (on as-needed basis for severe pain only) as well as modified activities, she was advised to follow-up in office sooner than standard 6 month follow-up. -Prescription for gabapentin 100 mg 1 tab p.o. twice daily #60 tablets for suspected nerve pain due to ongoing burning sensation as well as prescription for [place] 10/325 mg 1 tab p.o. every 8 hours as needed severe pain only #40 provided for patient for as needed use. -Surgical wound continues to heal well. -No signs of infection or DVT on exam. -X-rays showing no abnormalities in regards to prosthesis attachment to bone. -Range of motion is improved status post total knee replacement. -Antibiotic prophylaxis card provided today. -Follow-up 6 months status post surgery. If patient is doing well at that time , possible follow-up on as-needed basis from that point. Dental prophylaxis discussed in detail today. Patient given prophylaxis card with antibiotic options. Should patient have allergy to specific medication ( eg penicillin) alternative options are also provided on the card. Patient is aware that antibiotics should be taken prior to any procedures to prevent increased risk of infection to the joint. Patient is aware that this will be for the rest of their life. Patient states understanding and compliance. Dr. Medina was present for exam and agrees with plan. Medications Home Meds Reported Medications Omeprazole* (Omeprazole*) 40 Mg Capsule., 40 MG PO DAILY, #30 CAP 02/11/17 Rosuvastatin Calcium* (Crestor*) 20 Mg Tablet, 20 MG PO QHS, #30 TAB 02/11/17 Levothyroxine Sodium* (Levothyroxine Sodium*) 50 Mcg Tablet, 50 MCG PO EVERY OTHER DAY, #30 TAB 02/11/17 Levothyroxine Sodium* (Levothyroxine Sodium*) 75 Mcg Tablet, 75 MCG PO EVERY OTHER DAY, #30 TAB 02/11/17 Losartan Potassium* (Losartan Potassium*) 50 Mg Tablet, 50 MG PO DAILYEVERY OTHER DAY, TAB 4/7/17 Losartan-Hydrochlorothiazide (Losartan-HCTZ) 50-12.5 Mg Tab, 1 TAB PO EVERY OTHER DAY, TAB 02/11/17 LE ALONSO PA-C March 24, 2017 15:15
== END | disposition home or self-care (01) ==
LOC: HKI 14:00
DX: Z47.1 Aftercare following joint replacement surgery (principal); M25.562 Pain in left knee; Z96.652 Presence of left artificial knee joint
CPT/HCPCS: 73562; G0463